=== PATIENT | male | born 1950 | race Caucasian/White ===

== ENCOUNTER → 2020-02-13 | Outpatient (CLI) | payer MEDICARE, BC | LOC: KOH-I 12:17 | DX: G56.03 Carpal tunnel syndrome, bilateral upper limbs (principal); R20.0 Anesthesia of skin; M79.641 Pain in right hand; M79.642 Pain in left hand; M54.2 Cervicalgia; M47.812 Spondylosis without myelopathy or radiculopathy, cervical region | CPT/HCPCS: 72040 ==

== ENCOUNTER 2020-09-03 14:26 | Emergency (ER) | payer MEDICARE, BC ==
[2020-09-03 18:09] LABS: HEMOGLOBIN 16.8 gm/dl (14.0-17.5); RED BLOOD COUNT 5.04 M/UL (4.20-5.50); WHITE BLOOD COUNT 5.3 K/UL (4.5-11.0)
[2020-09-03 18:35] LABS: BUN/CREATININE RATIO 14 (0-10)
[2020-09-03] MEDS ORDERED: ZOFRAN4 MG PO (19:58)
[2020-09-03] MEDS ORDERED: TESSALON PERLE100 MG PO (19:58)
[2020-09-03] MEDS ORDERED: ZITHROMAX250 MG PO (19:58)
[2020-09-03] MEDS ORDERED: ATROVENT-HFA12.9 GM INH (19:58)
== END 2020-09-03 20:08 | disposition home or self-care (01) ==
LOC: ER1 14:26
PROVIDERS: Physician Assistant
DX: U07.1 COVID-19 (principal)
CPT/HCPCS: 0240U; 71045; 80053; 82550; 82553; 83874; 84484; 85025; 96374; 99283; J2405